=== PATIENT | female | born 1965 | race Caucasian/White ===

== ENCOUNTER 2016-06-26 11:36 | Emergency (ER) | payer SELFPAY ==
[2016-06-26] MEDS ORDERED: ALBUTEROL 3 ML DEYVIAL IH ONE (12:48)
[2016-06-26] MEDS ORDERED: ALBUTEROL 3 ML DEYVIAL ONE (12:49)
--- NOTE | 2016-06-26 13:06 | EDPHY ---
H & P Stated Complaint: 2 weeks productive coughing. Time Seen by Provider: 06/26/16 12:51 Source: Patient - Personal History LMP (Females 10-55): Post Menopausal Current Tetanus Diphtheria and Acellular Pertussis (TDAP): No - Medical/Surgical History Hx Asthma: Yes Hx Chronic Respiratory Disease: Yes Hx Diabetes: Yes Hx Cardiac Disease: Yes Hx Renal Disease: No Hx Cirrhosis: No Hx Alcoholism: Yes Hx HIV/AIDS: No Hx Splenectomy or Spleen Trauma: No Other PMH: COPD. Astma. HTN. seizures. diabetes. - Social History Smoking Status: Heavy smoker Constitutional: Initial Vital Signs Temperature (C) 36.7 C 06/26/16 11:37 Heart Rate 82 06/26/16 11:37 Respiratory Rate 16 06/26/16 11:37 Blood Pressure 113/76 06/26/16 11:37 O2 Sat (%) 95 06/26/16 11:37 O2 Delivery Mode Room Air Allergies/Adverse Reactions: aspirin Allergy (Verified 06/26/16 11:43) codeine Allergy (Verified 06/26/16 11:42) iodine Allergy (Verified 06/26/16 11:42) Penicillins Allergy (Verified 06/26/16 11:43) Home Medications: Medication Instructions Recorded AZITHROMYCIN [Z-PACK] 250 mg PO DAILY #1 packet 06/26/16 Albuterol [Proventil Inhaler] 1 - 2 puffs IH Q4 #1 mdi 06/26/16 Dexilant 06/26/16 HYDROcodone/HOMATROPINE HYCODA 1 tsp PO Q4-6PRN PRN #120 ml 06/26/16 [Hycodan Syrup (RX)] Lantus 100 UNITS/ML (*) 06/26/16 Losartan Potassium 06/26/16 Metformin HCl 06/26/16 Prozac 40 mg 06/26/16 Quetiapine Fumarate 06/26/16 Ranitidine HCl 06/26/16 Simvastatin 06/26/16 Stiolto Respimat Inhal [place] 06/26/16 methylPREDNISolone [Medrol Dose 1 each PO AD #1 ea 06/26/16 Tushar] Medical Decision Making ED Course/Re-evaluation: CHIEF COMPLAINT: Cough HISTORY OF PRESENT ILLNESS: 51-year-old female who continues to use tobacco heavily. She has diagnosed COPD and she uses an ipratropium steroid inhaler. Over the last month she has had a more productive cough. The cough has been persistent keeps her up at night. She denies any fevers or chills or systemic illness. She denies any nausea vomiting. She denies any shortness of breath and states that she has not needed to use any more oxygen than her usual 2 L at night. REVIEW OF SYSTEMS: A 10 point review of systems was performed and is negative with the exception of the elements mentioned in the history of present illness. PHYSICAL EXAM: HR, BP, O2 Sat, RR. Temp noted General Appearance: Alert, well hydrated, appropriate, and non-toxic appearing. Head: Atraumatic without scalp tenderness or obvious injury Eyes: Pupils equal, round, reactive to light and accommodation, EOMI, no trauma , no injection. Ears: Clear bilaterally, no perforation, normal landmarks Nose: Atraumatic, no rhinorrhea, clear. Throat: There is no erythema or exudates, no lesions, normal tonsils, mucus membranes moist. Neck: Supple, 2+ carotid upstroke, nontender, no lymphadenopathy. Respiratory: No retractions, no distress, no wheezes, and no accessory muscle use. Lungs are clear to auscultation bilaterally. Cardiovascular: Regular rate and rhythm, no murmurs, rubs, or gallops. Bilateral carotid, radial, dorsalis pedis, and posterior tibial pulses intact. Good capillary refill all extremities. Gastrointestinal: Abdomen is soft, nontender, non-distended, no masses, no rebound, no guarding, no peritoneal signs. Musculoskeletal: Normal active ROM of all extremities, atraumatic. Neurological: Alert, appropriate, and interactive. The patient has normal DTRs and non-focal cranial nerves, motor, sensory, and cerebellar exam. Skin: No rashes, good turgor, no nodules on palpation. Past medical history: COPD, hypertension, diabetes, coronary artery disease, tobacco abuse Past surgical history: Noncontributory Family history: Noncontributory Social history: , heavy tobacco use, denies drug or alcohol abuse. DIAGNOSTICS/PROCEDURES/CRITICAL CARE TIME: Study: PA and Lateral Chest X-ray. Results: Bronchitis without infiltrate. Images were interpreted by the radiologist, Dr. Valle. I viewed the images myself on the PACS system. Indication: persistent cough Results: After viewing the images myself on the PACS system. My interpretation of the images is: no acute process. The radiologist interpretation is pending at the time of this dictation. I have discussed the above x-rays with the radiologist. DIFFERENTIAL DIAGNOSIS: The differential diagnosis for the patient's cough included but was not limited to pneumonia, bronchitis, acute mountain sickness, pneumonitis, congestive heart failure, and pulmonary embolus. MEDICAL DECISION MAKING: This patient has a chronic bronchitic cough. She has no evidence of systemic illness. She responded well to a duo nebulizer treatment. She is really here because the cough is keeping her up at night and keeping her partner up at night also. She has not required any increase in oxygen utilization and she continues to use 2 L each night per usual. In addition she has normal room air oxygen saturations here. Chest x-ray shows bronchitis. Plan to discharge home with Azithromycin and Medrol dose pack. She is instructed to followup with her doctor. - Data Points Medications Given: Discontinued Medications Albuterol (Proventil Neb) 3 ml IH EDNOW ONE Stop: 06/26/16 12:49 Last Admin: 06/26/16 12:52 Dose: 3 ml Departure - Departure Disposition: Home, Routine, Self-Care Clinical Impression: Bronchitis, COPD (chronic obstructive pulmonary disease) Condition: Good Instructions: Acute Bronchitis (ED), COPD (Chronic Obstructive Pulmonary Disease) (ED) Additional Instructions: Take Azithromycin as prescribed. Take Medrol dose pack as directed. Use cough syrup as directed for cough. Followup with your doctor. Referrals: NONE *PRIMARY CARE P,. [Primary Care Provider] - As per Instructions Prescriptions: HYDROcodone/HOMATROPINE HYCODA [Hycodan Syrup (RX)] 1 tsp PO Q4-6PRN PRN #120 ml PRN Reason: Cough, Moderate methylPREDNISolone [Medrol Dose Tushar] 1 each PO AD #1 ea Albuterol [Proventil Inhaler] 1 - 2 puffs IH Q4 #1 mdi AZITHROMYCIN [Z-PACK] 250 mg PO DAILY #1 packet Report Scribed for: Justin Sutherland Report Scribed by: Benita Echols Date of Report: 06/26/16 Time of Report: 13:23
--- NOTE | 2016-06-26 13:32 | DX ---
Chest, Two Views at 1250 hours History: Shortness of breath, cough, chest pain. Comparison: None. Findings: Cardiac silhouette is within normal range. Bilateral peribronchial thickening. No pneumonia , congestive heart failure, pleural effusion, or pneumothorax. Impression: 1. Bronchitis. 2. No definite pneumonia.
[2016-06-26 13:45] VITALS: BP 146/94; PULSE 80; RESP 14; TEMP 97.9; O2SAT 92
== END 2016-06-26 13:45 | disposition home or self-care (01) ==
DX: J44.9 Chronic obstructive pulmonary disease, unspecified (principal); J20.9 Acute bronchitis, unspecified; I10 Essential (primary) hypertension; E11.9 Type 2 diabetes mellitus without complications; F17.200 Nicotine dependence, unspecified, uncomplicated; Z79.4 Long term (current) use of insulin